=== PATIENT | male | born 1960 | race Hispanic/Latino ===

== ENCOUNTER 2023-01-13 10:33 | Emergency (ER) | payer BC ==
[~2023-01-13] VITALS: Ht 172.7 cm; Wt 99.3 kg
[2023-01-13] MEDS ORDERED: FAMOTIDINE 20 MG/2 ML VIAL IV STA (10:40)
[2023-01-13] MEDS ORDERED: ONDANSETRON HCL INJ 2MG/ML 2ML 2 MG/ML VIAL IV STA (10:40)
[2023-01-13] MEDS ORDERED: SODIUM CHLORIDE 0.9% 1000ML 1,000 ML IV ONE (10:45)
[2023-01-13] MEDS ORDERED: KETOROLAC TROMETHAMINE 30 MG/ML VIAL ONE (10:56)
[2023-01-13] MEDS ORDERED: ONDANSETRON HCL INJ 2MG/ML 2ML 2 MG/ML VIAL ONE (10:56)
[2023-01-13] MEDS ORDERED: FAMOTIDINE 20 MG/2 ML VIAL IV ONE (10:57)
[2023-01-13] MEDS ORDERED: SODIUM CHLORIDE 0.9% 1000ML 1,000 ML ONE (10:57)
[2023-01-13] MEDS ORDERED: KETOROLAC TROMETHAMINE 30 MG/ML VIAL IV STA (11:20)
[2023-01-13] MEDS ORDERED: TAMSULOSIN HCL 0.4 MG CAP PO ONE (12:30)
[2023-01-13] MEDS ORDERED: TAMSULOSIN HCL 0.4 MG CAP ONE (12:41)
[2023-01-13] MEDS ORDERED: CEFTRIAXONE 1 GM VIAL ONE (12:42)
[2023-01-13] MEDS ORDERED: CEFUROXIME500 MG PO (14:47)
[2023-01-13] MEDS ORDERED: PHENAZOPYRIDIN200 MG PO (14:48)
[2023-01-13] MEDS ORDERED: FLOMAX0.4 MG PO (14:50)
[2023-01-13 15:20] VITALS: BP 126/78
== END 2023-01-13 15:23 | disposition home or self-care (01) ==
LOC: FSED 10:41
DX: R50.9 Fever, unspecified (principal); R30.0 Dysuria; N39.0 Urinary tract infection, site not specified; N40.1 Benign prostatic hyperplasia with lower urinary tract symptoms; D69.6 Thrombocytopenia, unspecified; D72.829 Elevated white blood cell count, unspecified; E78.5 Hyperlipidemia, unspecified; F10.20 Alcohol dependence, uncomplicated
CPT/HCPCS: 74176; 80048; 80076; 81003; 85025; 87086; 87186; 96374; 96375; 96376; 99284; J0696; J1885; J2405; J7030

== ENCOUNTER 2023-01-16 12:47 | Emergency (ER) | payer BC ==
[~2023-01-16 12:47] MED LIST: CEFUROXIME500 MG PO; FLOMAX0.4 MG PO; PHENAZOPYRIDIN200 MG PO
[2023-01-16] MEDS ORDERED: ASPIRIN 325 MG TAB ONE (13:11)
[2023-01-16] MEDS ORDERED: SODIUM CHLORIDE 0.9% 1000ML 1,000 ML ONE (13:11)
[2023-01-16] MEDS ORDERED: FAMOTIDINE 20 MG/2 ML VIAL IV ONE ×2 (13:12→13:15)
[2023-01-16] MEDS ORDERED: ASPIRIN 81 MG CHEW TAB PO ONE (13:15)
[2023-01-16] MEDS ORDERED: ASPIRIN 325 MG TAB PO ONE (13:30)
[2023-01-16] MEDS ORDERED: SODIUM CHLORIDE 0.9% 1000ML 1,000 ML IV ONE (13:30)
[2023-01-16 15:06] VITALS: BP 161/72
== END 2023-01-16 15:11 | disposition home or self-care (01) ==
LOC: FSED 13:05
DX: R07.9 Chest pain, unspecified (principal); N40.0 Benign prostatic hyperplasia without lower urinary tract symptoms; E11.65 Type 2 diabetes mellitus with hyperglycemia; I10 Essential (primary) hypertension; Z20.822 Contact with and (suspected) exposure to COVID-19
CPT/HCPCS: 71046; 80053; 81003; 82553; 84484; 85025; 99284; J7030; U0002; 93005